=== PATIENT | male | born 1955 | race Caucasian/White ===

== ENCOUNTER 2022-07-18 18:15 | Emergency (ER) | payer MEDICARE, OTHER ==
[~2022-07-18] VITALS: Ht 182.9 cm; Wt 154.2 kg
[2022-07-19] MEDS ORDERED: BACTRIM DS TAB1 EACH PO (00:12)
[2022-07-19] MEDS ORDERED: ELIQUIS5 MG PO (00:12)
[2022-07-19] MEDS ORDERED: TOPROL XL50 MG PO (00:12)
--- NOTE | 2022-07-21 19:00 | EKG ---
[facility] [address] [facility] [place] [address] Signed Atrial fibrillation with rapid ventricular response Rightward axis Septal infarct , age undetermined Abnormal ECG No previous ECGs available Confirmed by EDGAR YANES MD ([id number] on 07/21/2022 7:00:45 PM Electronically Signed By: EDGAR YANES MD 07/21/221899 PATIENT NAME: SAMANTHA WEINER Electrocardiogram DATE OF : 51 PHYSICIAN: EDGAR YANES MD REPORT #: [id number] REPORT IS CONFIDENTIAL AND NOT TO BE RELEASED WITHOUT AUTHORIZATION
== END 2022-07-19 10:03 | disposition home or self-care (01) ==
LOC: ED 18:15
DX: L03.313 Cellulitis of chest wall (principal); L03.111 Cellulitis of right axilla; I48.91 Unspecified atrial fibrillation; Z79.899 Other long term (current) drug therapy; Z79.01 Long term (current) use of anticoagulants
CPT/HCPCS: 36415; 71045; 71260; 80053; 83605; 83735; 84484; 85025; 85610; 96366; 96375; 99284-25; A9270; J0696; J7121; Q9967

== ENCOUNTER 2023-07-03 01:21 | Emergency (ER) | payer MEDICARE, OTHER ==
[~2023-07-03] VITALS: Ht 182.9 cm; Wt 154.2 kg
[~2023-07-03 01:21] MED LIST: BACTRIM DS TAB1 EACH PO; ELIQUIS5 MG PO; TOPROL XL50 MG PO
[2023-07-03 01:51] LABS: BASOPHILS 0.2 % (0-2); EOSINOPHILS 0.2 % (0-6); HEMATOCRIT 48.4 % (35.0-50.0); HEMOGLOBIN 15.9 g/dL (12.0-18.0); LYMPHOCYTES 6.8 % (24-44); MCH 28.4 (27-36); MCV 86.3 fl (81-99); MONOCYTES 6.8 % (0-12); PLATELET COUNT 180 K/uL (140-440); RBC 5.61 M/ul (4.3-5.7); RDW 15.1 (10.5-15.0)
[2023-07-03 02:10] LABS: ALBUMIN 3.8 g/dL (3.4-5.0); ALBUMIN/GLOBULIN RATIO 0.9 (1.1-2.4); ANION GAP 9.4 (7-21); BILIRUBIN, TOTAL 0.9 ng/dL (0.2-1.0); BUN/CREATININE RATIO 8.92 (6.0-28.6); CALCIUM 9.5 mg/dL (8.5-10.1); CREATININE, SERUM 1.12 mg/dL (0.70-1.30); POTASSIUM 3.4 mmol/L (3.5-5.1)
[2023-07-03 04:14] VITALS: BP 177/110
== END 2023-07-03 04:10 | disposition short-term general hospital (02) ==
LOC: ED 01:21
PROVIDERS: Emergency Medicine
DX: I71.43 Infrarenal abdominal aortic aneurysm, without rupture (principal); G89.29 Other chronic pain; M54.50 Low back pain, unspecified; K52.9 Noninfective gastroenteritis and colitis, unspecified; D72.829 Elevated white blood cell count, unspecified
CPT/HCPCS: 36415; 74177; 80053; 83690; 85025; J1170; J2405; Q9967